=== PATIENT | female | born 1985 | race Hispanic/Latino ===

== ENCOUNTER → 2024-04-28 | Outpatient (CLI) | payer BC ==
[~2024-04-28] MED LIST: PREN1TAB80 PO
== END | disposition home or self-care (01) ==
LOC: RAH 08:08
PROVIDERS: ATTEND Obstetrics & Gynecology
DX: Z12.31 Encounter for screening mammogram for malignant neoplasm of breast (principal); R92.333 Mammographic heterogeneous density, bilateral breasts
CPT/HCPCS: 77067

== ENCOUNTER → 2025-05-01 | Outpatient (CLI) | payer BC | END | disposition home or self-care (01) | LOC: RAH 14:38 | PROVIDERS: ATTEND Obstetrics & Gynecology | DX: Z12.31 Encounter for screening mammogram for malignant neoplasm of breast (principal) | CPT/HCPCS: 77067 ==

== ENCOUNTER → 2025-06-04 | Outpatient (CLI) | payer BC ==
--- NOTE | 2025-06-08 08:29 | HMCIMG ---
BILATERAL BREAST ULTRASOUND: CLINICAL HISTORY: 40-year-old female with follow-up for mammogram from 05/01/2025 which demonstrated density in the right breast CC view. Finding: Real-time examination of the both breasts demonstrates heterogeneous echotexture throughout both the breasts without evidence of focal solid mass. Both breasts has small cyst suggesting of fibrocystic changes on the right breast at 2:00 cyst measuring 0.3 x 0.3 x 0.4 cm. The left breast at 3:00 there is a cyst measuring 1.0 x 0.8 x 0.9 cm. The left axillary region there is a benign-appearing lymph node measuring 1.1 x 0.6 x 0.9 cm.. IMPRESSION: Dense breasts with no solid hypoechoic lesion Fibrocystic changes I would recommend annual mammography with tomography with bilateral breast sonogram FINAL ASSESSMENT: ACR: BI-RAD- 2. Benign Finding.
--- NOTE | 2025-06-08 08:34 | HMCIMG ---
DIGITAL right DIAGNOSTIC MAMMOGRAM Technique: The digital mammographic examination right breast craniocaudal, mediolateral oblique views along with CAD was obtained. Coned-down compression view of the right breast along with bilateral breast sonogram was also obtained. History: This is a 40 years year-old female 2, para2 Ab0 . Patient has no family history of breast cancer. Patient has no complaint Reference:Prior mammogram from 05/01/2025 and 04/28/2024 are available.. Breast composition: Breast composition C: The breasts are heterogeneously dense, which may obscure small masses. Finding: The digital mammographic examination of right breast in craniocaudal and mediolateral oblique view along with CAD demonstrates moderately heterogeneously dense with nodular changes. ULTRASOUND and the coned-down compression demonstrated density which ultrasound demonstrate to be a cyst.. There is no evidence of any dendritic mass, cluster microcalcification or architectural distortion. The retromammary fat appears to be normal. IMPRESSION: NO RADIOGRAPHIC EVIDENCE OF MALIGNANT CHANGES. WE WOULD RECOMMEND ANNUAL FOLLOW UP WITH TOMOSYNTHESIS UNLESS OTHERWISE CLINICALLY INDICATED. FINAL ASSESSMENT: ACR: BI-RAD- 2. Benign Finding. NOTE: IF A WORK-UP OF THIS PATIENT LEADS TO A BIOPSY, PLEASE FORWARD A COPY OF THE PATHOLOGY REPORT TO OUR OFFICE REQUIRED BY [facility] EFFECTIVE APRIL 15, 1994. A NEGATIVE MAMMOGRAM SHOULD NOT PRECLUDE BIOPSY OF A CLINICALLY PALPABLE SUSPICIOUS MASS, 10% OF BREAST CANCERS ARE MAMMOGRAPHICALLY OCCULT. THIS MAMMOGRAPHY FACILITY IS FULLY ACCREDITED BY THE [employer]OD AND [employer]UG [employer] (FDA). THANK YOU FOR THIS REFERRAL.
== END | disposition home or self-care (01) ==
LOC: RAH 12:50
PROVIDERS: ATTEND Obstetrics & Gynecology
DX: N60.01 Solitary cyst of right breast (principal); N60.02 Solitary cyst of left breast; N60.11 Diffuse cystic mastopathy of right breast; N60.12 Diffuse cystic mastopathy of left breast; R92.333 Mammographic heterogeneous density, bilateral breasts
CPT/HCPCS: 77065